=== PATIENT | male | born 1960 | race Native Hawaiian/Other Pacific Islander ===

== ENCOUNTER 2021-02-13 16:51 | Inpatient (IN) | payer MEDICAID ==
[~2021-02-13] VITALS: Ht 165.1 cm; Wt 84.5 kg
[2021-02-13 20:22] LABS: BASOPHILS % (AUTO) 0.9 % (0.0-2.0); EOSINOPHILS % (AUTO) 1.2 % (1.0-6.0); HEMATOCRIT 43.3 % (41-53); HEMOGLOBIN 14.6 g/dL (13.5-17.5); LYMPHOCYTES # (AUTO) 1.3 K/uL (1.0-4.8); LYMPHOCYTES % (AUTO) 29.1 % (22.0-44.0); MEAN CORPUSCULAR HEMOGLOBIN 29.7 pg (26.0-34.0); MEAN CORPUSCULAR HGB CONC 33.6 G/dL (31.0-37.0); MEAN CORPUSCULAR VOLUME 88 fL (80-100); MONOCYTES # (AUTO) 0.7 K/uL (0.1-1.0); MONOCYTES % (AUTO) 14.6 % (2.0-9.0); NEUTROPHILS # (AUTO) 2.5 K/uL (1.8-7.7); NEUTROPHILS % (AUTO) 54.2 % (40.0-70.0); PLATELET COUNT (AUTO) 179 K/uL (150-450); RED BLOOD CELL COUNT(AUTO) 4.91 MIL/uL (4.50-5.90); RED CELL DISTRIBUTION WIDTH 13.7 % (11.5-14.5)
[2021-02-13] MEDS ORDERED: QUET50TA24 PO (20:32)
[2021-02-13 20:35] LABS: ANION GAP 11 mmol/L (8-16); CALCIUM, TOTAL 8.6 mg/dL (8.8-10.5); CARBON DIOXIDE 25 mmol/L (22-29); CHLORIDE 101 mmol/L (98-107); CREATININE 0.74 mg/dL (0.60-1.30); GLOMERULAR FILTR. RATE CALC > 60 mL/min (>60); GLUCOSE,RANDOM 82 mg/dL (70-110); POTASSIUM 3.8 mmol/L (3.5-5.1); SODIUM SERUM 137 mmol/L (136-145); UREA NITROGEN, BLOOD 13 mg/dL (7-18)
[2021-02-13 20:40] LABS: ALANINE AMINOTRANSFERASE 28 U/L (12-78); ALBUMIN 3.8 g/dL (3.4-5.0); ALKALINE PHOSPHATASE 71 U/L (46-116); ASPARTATE AMINOTRANSFERASE 30 U/L (15-37); BILIRUBIN,TOTAL 0.4 mg/dL (0.1-1.0); TOTAL PROTEIN, SERUM 8.4 g/dL (6.4-8.2)
[2021-02-13 20:57] LABS: AMPHET/METH SCREEN,URINE NEGATIVE (NEGATIVE); BARBITURATE SCREEN, URINE NEGATIVE (NEGATIVE); BENZODIAZEPINES SCREEN,URINE NEGATIVE (NEGATIVE); CANNABINOID SCREEN,URINE NEGATIVE (NEGATIVE); COCAINE SCREEN,URINE NEGATIVE (NEGATIVE); METHADONE SCREEN, URINE NEGATIVE (NEGATIVE); OPIATE SCREEN,URINE NEGATIVE (NEGATIVE)
[2021-02-13 20:58] LABS: PHENCYCLIDINE SCREEN,URINE NEGATIVE (NEGATIVE)
[2021-02-13] MEDS ORDERED: LORazepam 2 MG TABLET PO ONE (21:30)
[2021-02-13] MEDS ORDERED: LORazepam 2 MG TABLET PO PRN (22:30)
[2021-02-13] MEDS ORDERED: ZOLPIDEM TARTRATE 10 MG TABLET PO PRN (22:30)
[2021-02-14 00:15] LABS: COVID AG,FIA SOURCE NASOPHARYNGEAL
[2021-02-14 00:34] LABS: CHOL/HDL RATIO 2.9 (4.2-7.3); CHOLESTEROL 188 mg/dL (131-200); HDL CHOLESTEROL 64 mg/dL (40-60); LDL CHOL (CALC.) 114 mg/dL (0-130); TRIGLYCERIDES 48 mg/dL (15-150)
[2021-02-14] MEDS ORDERED: LOPERAMIDE HCL 2 MG CAPSULE PO PRN (11:30)
[2021-02-14] MEDS ORDERED: ACETAMINOPHEN 325 MG TABLET PO PRN (11:30)
[2021-02-14] MEDS ORDERED: MAGNESIUM HYDROXIDE SUSPENSION 30 ML UDCUP PO PRN (11:30)
[2021-02-14] MEDS ORDERED: CloNIDine HCL 0.1 MG TABLET PO PRN (11:30)
[2021-02-14] MEDS ORDERED: GuaiFENesin/D-METHORPHAN [SUGAR-FREE] 200-20MG/10 ML SYRUP UDCUP PO PRN (11:30)
[2021-02-14] MEDS ORDERED: PETROLATUM,WHITE 28 GM JELLY TP PRN (11:30)
[2021-02-14] MEDS ORDERED: ONDANSETRON HCL 4 MG TABLET PO PRN (11:30)
[2021-02-14] MEDS ORDERED: IBUPROFEN 400 MG TABLET PO PRN (11:30)
[2021-02-14] MEDS ORDERED: ALBUTEROL SULFATE HFA 90 MCG/PUFF 8 GM INHALER IH PRN (11:30)
[2021-02-14] MEDS ORDERED: MAG HYDROX/AL HYDROX/SIMETH ES 30 ML SUSPENSION UDCUP PO PRN (11:30)
[2021-02-14] MEDS ORDERED: NICOTINE 14 MG/24 HOUR PATCH TD PRN (11:30)
[2021-02-14] MEDS ORDERED: DOCUSATE SODIUM 100 MG CAPSULE PO PRN (11:30)
[2021-02-14 16:01] VITALS: BP 128/77
[2021-02-14] MEDS: MIRTAZAPINE 15 MG TABLET PO SCH (20:53)
[2021-02-15 08:10] VITALS: BP 135/82
[2021-02-15 16:23] VITALS: BP 124/76
[2021-02-15] MEDS: MIRTAZAPINE 15 MG TABLET PO SCH (20:15)
[2021-02-16 08:47] VITALS: BP 142/91
[2021-02-16 16:00] VITALS: BP 135/74
[2021-02-16] MEDS: HALOPERIDOL 5 MG TABLET PO PRN (17:41)
[2021-02-16] MEDS: MIRTAZAPINE 15 MG TABLET PO SCH (21:53)
[2021-02-17 08:15] VITALS: BP 123/81
[2021-02-17 16:40] VITALS: BP 121/76
[2021-02-17] MEDS: MIRTAZAPINE 15 MG TABLET PO SCH (20:04)
[2021-02-18 11:04] VITALS: BP 135/76
[2021-02-18 16:55] VITALS: BP 129/75
[2021-02-18] MEDS: MIRTAZAPINE 30 MG TABLET PO SCH (20:03)
[2021-02-19 08:57] VITALS: BP 141/85
[2021-02-19 16:16] VITALS: BP 137/72
[2021-02-19] MEDS: MIRTAZAPINE 30 MG TABLET PO SCH (20:07)
[2021-02-20 08:54] VITALS: BP 140/86
[2021-02-20 10:23] LABS: COVID AG,FIA SOURCE NASOPHARYNGEAL
[2021-02-20] MEDS ORDERED: TUBERCULIN, PURIFIED PROTEIN DERIVATIVE 5 TU/0.1 ML SYRINGE ID ONE (13:00)
[2021-02-20 16:05] VITALS: BP 156/92
[2021-02-20] MEDS: MIRTAZAPINE 30 MG TABLET PO SCH (21:06)
[2021-02-20] MEDS: HALOPERIDOL 5 MG TABLET PO PRN (21:06)
[2021-02-21 08:00] VITALS: BP 157/92
[2021-02-21 17:51] VITALS: BP 136/82
[2021-02-21] MEDS: MIRTAZAPINE 30 MG TABLET PO SCH (20:22)
[2021-02-22 08:00] VITALS: BP 156/74
[2021-02-22 16:00] VITALS: BP 130/74
[2021-02-22] MEDS: MIRTAZAPINE 30 MG TABLET PO SCH (20:24)
[2021-02-23 08:41] VITALS: BP 141/93
[2021-02-23] MEDS: HALOPERIDOL 5 MG TABLET PO PRN (16:54)
[2021-02-23 17:00] VITALS: BP 128/79
[2021-02-23] MEDS: MIRTAZAPINE 30 MG TABLET PO SCH (20:41)
[2021-02-24 08:43] VITALS: BP 145/82
[2021-02-24] MEDS ORDERED: TUBERCULIN, PURIFIED PROTEIN DERIVATIVE 5 TU/0.1 ML SYRINGE ID ONE ×2 (12:15)
[2021-02-24] MEDS: MIRTAZAPINE 30 MG TABLET PO SCH (20:23)
[2021-02-25 08:00] VITALS: BP 130/88
[2021-02-25 16:00] VITALS: BP 129/78
[2021-02-25] MEDS: HALOPERIDOL 5 MG TABLET PO PRN (16:43)
[2021-02-25] MEDS: MIRTAZAPINE 30 MG TABLET PO SCH (20:12)
[2021-02-26 08:00] VITALS: BP 139/84
[2021-02-26 16:35] VITALS: BP 140/80
[2021-02-26] MEDS: MIRTAZAPINE 30 MG TABLET PO SCH (20:05)
[2021-02-27 08:00] VITALS: BP 133/69
[2021-02-27 11:02] LABS: COVID AG,FIA SOURCE NASOPHARYNGEAL
[2021-02-27 16:30] VITALS: BP 135/79
[2021-02-27] MEDS: MIRTAZAPINE 30 MG TABLET PO SCH (20:42)
[2021-02-28 08:59] VITALS: BP 151/87
[2021-02-28 16:30] VITALS: BP 117/69
[2021-02-28] MEDS: MIRTAZAPINE 30 MG TABLET PO SCH (20:19)
[2021-03-01 08:00] VITALS: BP 126/69
[2021-03-01 16:00] VITALS: BP 130/76
[2021-03-01] MEDS: MIRTAZAPINE 30 MG TABLET PO SCH (20:39)
[2021-03-02 09:16] VITALS: BP 122/81
[2021-03-02 16:00] VITALS: BP 116/71
[2021-03-02] MEDS: HALOPERIDOL 5 MG TABLET PO PRN (16:45)
[2021-03-02] MEDS: MIRTAZAPINE 30 MG TABLET PO SCH (20:25)
[2021-03-03 16:05] VITALS: BP 130/72
[2021-03-03] MEDS: MIRTAZAPINE 30 MG TABLET PO SCH (21:03)
[2021-03-04 08:16] LABS: COVID AG,FIA SOURCE NASOPHARYNGEAL
[2021-03-04 09:08] VITALS: BP 124/83
[2021-03-04] MEDS ORDERED: MIRT30 PO (09:46)
== END 2021-03-04 10:30 | disposition home or self-care (01) | DRG 751 ==
LOC: EMS 16:54 → 3EC 22:25
PROVIDERS: ADMIT Psychiatry & Neurology Child & Adolescent Psychiatry; ATTEND Psychiatry & Neurology Child & Adolescent Psychiatry
DX: F33.2 Major depressive disorder, recurrent severe without psychotic features (principal); R45.851 Suicidal ideations; Z59.0 Homelessness; F17.210 Nicotine dependence, cigarettes, uncomplicated; Z20.822 Contact with and (suspected) exposure to COVID-19; F41.9 Anxiety disorder, unspecified; E66.9 Obesity, unspecified
CPT/HCPCS: 80053; 80061; 85025; 99285; G0480